=== PATIENT | male | born 1990 | race Caucasian/White ===

== ENCOUNTER 2016-06-03 20:03 | Emergency (ER) | payer MEDICAID ==
[2016-06-03 21:51] LABS: BASO % 0.4 % (0.0-1.0); EOS # 0.1 K/mm3 (0.0-0.50); EOS % 1.2 % (0.0-3.0); LARGE UNSTAINED CELL # 0.1 K/mm3 (0.0-0.4); LARGE UNSTAINED CELL % 1.6 % (0.0-4.0); LYMPH # 1.9 K/mm3 (1.5-6.5); MEAN CORPUSCULAR HEMOGLOBIN 30.5 pg (27.0-33.0); MEAN CORPUSCULAR HGB CONC 34.5 g/dl (32.0-36.5); MEAN CORPUSCULAR VOLUME 88.5 fl (80.0-96.0); MONO # 0.5 K/mm3 (0.0-0.8); MONO % 5.9 % (0.0-5.0); NEUTROPHILS # 5.7 K/mm3 (1.8-7.7); PLATELET COUNT, AUTOMATED 243 k/mm3 (150-450); RED CELL DISTRIBUTION WIDTH 12.1 % (11.5-14.5); WHITE BLOOD COUNT 8.4 K/mm3 (4.0-10.0)
[2016-06-03 21:57] LABS: INR 0.98
--- NOTE | 2016-06-03 22:00 | REPUSA ---
CLINICAL HISTORY:Headache TECHNIQUE: Head CT without contrast COMPARISON: No study for comparison is available at the time of interpretation. Brain: No intracranial hemorrhage, hydrocephalus, acute parenchymal edema or evident mass. Calvarium: Unremarkable. Sinuses (partially visualized): Clear. IMPRESSION: No acute intracranial findings.
[2016-06-03] MEDS ORDERED: ACETAMINOPHEN 325 MG TAB As Ordered ONE (22:11)
[2016-06-03 22:17] LABS: ANION GAP 8 MEQ/L (8-16); BLOOD UREA NITROGEN 18 MG/DL (7-18); CALCIUM LEVEL 8.4 MG/DL (8.5-10.1); CARBON DIOXIDE LEVEL 30 MEQ/L (21-32); CHLORIDE LEVEL 105 MEQ/L (98-107); CREATININE FOR GFR 0.79 MG/DL (0.70-1.30); GLOMERULAR FILTRATION RATE > 60.0 (>60); GLUCOSE, FASTING 87 MG/DL (70-105); SODIUM LEVEL 143 MEQ/L (136-145)
--- NOTE | 2016-06-03 23:11 | EDDOCDS ---
Nurse's Notes [facility] Name: John Sutton Age: 25 yrs Sex: Male : 1990 Arrival Date: 06/03/2016 Time: 20:03 Bed I2 / M2 Private MD: uAry Manning Diagnosis: Other chest pain;Headache Presentation: 06/03 20:16 Presenting complaint: Patient states: pt got "really shaky and really dizzy" while ttb moving furniture this afternoon around 3pm. Pains went through chest he states and he is "sore". Those symptoms resolved "after a while" but is now fatigued. Denies SOB, nausea, chest pain now. Aspirin was not taken prior to arrival. Adult Sepsis Screening: The patient does not have new or worsening altered mentation. Patient's respiratory rate is less than 22. Systolic blood pressure is greater than 100. Patient has a qSOFA score of 0- Negative Sepsis Screen. Suicide/Homicide risk assessment- the patient denies having any suicidal and/or homicidal ideations and does not present with any other emotional, behavioral or mental health complaints. Status: Patient is not a full service vending driver or dependent. Transition of care: patient was not received from another setting of care. 20:16 Acuity: MALIA Level 4 ttb 20:16 Method Of Arrival: Walkin/Carried/Asstd ttb Triage Assessment: 20:19 General: Appears in no apparent distress, well nourished, well groomed, Behavior is ttb appropriate for age, cooperative, flat, pleasant, quiet. Pain: Location: headache and muscle aches. HIV screening NA for this visit Offered previously. Neurological: Level of Consciousness is awake, alert, Reports headache generalized weakness . Cardiovascular: Chest pain is described as none now. Respiratory: No deficits noted. Airway is patent Respiratory effort is even, unlabored, Denies cough, shortness of breath. GI: Denies nausea, vomiting, pain. Derm: Skin is normal. Injury Description: No known injury. Historical: - Allergies: No known drug Allergies; - Home Meds: 1. none - PMHx: Hypertension; - PSHx: none; - Social history: Smoking status: Patient states was never smoker of tobacco. Patient/guardian denies using alcohol, street drugs, No barriers to communication noted, The patient speaks fluent Divehi, Speaks appropriately for age. - Family history: Not pertinent. - : The pt / caregiver states he / she is not on anticoagulants. Home medication list is obtained from the patient. - Exposure Risk Screening:: None identified. Screenin:49 Screening information is obtained from the patient. Fall risk: No risks identified. lf1 Assistance ADL's: requires no assistance with activities of daily living. Abuse/DV Screen: The patient / caregiver reports he/she is: not in a situation that causes fear, pain or injury. Nutritional screening: No deficits noted. Advance Directives: Currently, there is no health care proxy. home support is adequate. Assessment: 20:46 Adult Sepsis Screening: The patient does not have new or worsening altered mentation. lf1 Patient's respiratory rate is less than 22. Systolic blood pressure is greater than 100. Patient has a qSOFA score of 0- Negative Sepsis Screen. General: Appears in no apparent distress, comfortable, Behavior is cooperative. Pain: Denies pain. Neurological: Level of Consciousness is awake, alert, Oriented to person, place, time. EENT: No deficits noted. Cardiovascular: Chest pain Chest pain that began at 1500 and lasted for several hours - has since resolved. At worst pain was 9/10 and was mid sternal radiating into his back with shortness of breath, dizziness and blurred vision. . Respiratory: Respiratory effort is even, unlabored. GI: Denies nausea, vomiting. Derm: Skin is normal. 20:49 General: Pt reports history of hypertension but has been without his insurance for 1 about one year and as a result has not been taking his meds or seeing his PCP. 22:15 General: Appears in no apparent distress, comfortable, Behavior is appropriate for age, jo3 cooperative. Neurological: Level of Consciousness is awake, alert, Oriented to person, place, time. Cardiovascular: No deficits noted. Respiratory: Airway is patent Respiratory effort is even, unlabored. Derm: Skin is pink, warm & dry. Vital Signs: 20:04 BP 201 / 86; Pulse 98; Resp 20; Temp 98.4(O); Pulse Ox 98% on R/A; Weight 108.86 kg li (R); Height 5 ft. 10 in. (177.80 cm) (R); Pain 7/10; 20:49 BP 168 / 78 LA Sitting (man/lg); lf1 23:09 BP 139 / 74; Pulse 16; Resp 70; Pain 0/10; mf4 20:04 Body Mass Index 34.44 (108.86 kg, 177.80 cm) li Vitals: 20:04 Log In Time: June 03, 2016 at 20:04. li ED Course: 20:04 Patient visited by Qi Deluna PCA. li 20:04 Aury Manning is Private Physician. li 20:04 Patient moved to Waiting li 20:05 Patient moved to Pre RCE li 20:19 Triage Initiated ttb 20:22 Patient moved to PD2 / 27 ttb 20:30 EKG done. (by ED staff). Reviewed by Barron Lopez DO. ar3 20:31 Patient visited by Sandra Wall PCA. ar3 20:31 Patient moved to Pre RCE ar3 20:45 Patient moved to Triage 2 lf1 20:46 Patient visited by Ellen John,RN. lf1 20:54 Patient visited by Ellen John,MILANA. lf1 21:02 Otto Almonte RPA-C is PHCP. ck7 21:02 Barron Lopez DO is Attending Physician. ck7 21:18 Patient visited by Otto Almonte RPA-C. ck7 21:32 Patient moved to I2 / M2 ar3 21:43 D-Dimer Quant Sent. slm 21:44 Mary Mullins LPN is Primary Nurse. slm 21:44 Patient visited by Mary Mullins LPN. slm 21:44 Cardiac Marker Panel Sent. slm 21:44 Pt & Aptt Sent. slm 21:44 MED Profile Sent. slm 21:44 CBC with Diff Sent. slm 21:44 Inserted saline lock: 20 gauge in right antecubital area and blood collected. The [facility] patient tolerated the procedure well. 22:07 CT Head Without Contrast Returned. EDMS 22:15 The patient / caregiver is instructed regarding the plan of care and ED course. jo3 22:16 Patient visited by Yuliya Weber RN. rs3 22:16 Patient visited by Yaneli Rust RN. jo3 22:50 Patient visited by Otto Almonte RPA-C. ck7 23:02 Aury Manning is Referral Physician. ck7 23:09 Discontinued lock intact, bleeding controlled, pressure dressing applied, No slm redness/swelling at site. No procedures done that require assistance. Administered Medications: 22:14 Drug: NS 0.9% 1000 ml [sodium chloride 0.9 % intravenous solution] Route: IV; Rate: jo3 bolus; Site: right antecubital; 23:10 Follow up: IV Status: Completed infusion; IV Intake: 900ml slm 22:14 Drug: Acetaminophen 650 mg [acetaminophen 325 mg tablet (2 tabs)] Route: PO; jo3 Intake: 23:10 IV: 900.00ml; Total: 900.00ml. slm Order Results: Lab Order: CBC with Diff; SPEC'M 06/03/16 21:42 Test: WHITE BLOOD COUNT; Value: 8.4; Range: 4.0-10.0; Units: K/mm3; Status: F Test: RED BLOOD COUNT; Value: 4.64; Range: 4.30-6.10; Units: M/mm3; Status: F Test: HEMOGLOBIN; Value: 14.2; Range: 14.0-18.0; Units: g/dl; Status: F Test: HEMATOCRIT; Value: 41.1; Range: 42.0-52.0; Abnormal: Below low normal; Units: %; Status: F Test: MEAN CORPUSCULAR VOLUME; Value: 88.5; Range: 80.0-96.0; Units: fl; Status: F Test: MEAN CORPUSCULAR HEMOGLOBIN; Value: 30.5; Range: 27.0-33.0; Units: pg; Status: F Test: MEAN CORPUSCULAR HGB CONC; Value: 34.5; Range: 32.0-36.5; Units: g/dl; Status: F Test: RED CELL DISTRIBUTION WIDTH; Value: 12.1; Range: 11.5-14.5; Units: %; Status: F Test: PLATELET COUNT, AUTOMATED; Value: 243; Range: 150-450; Units: k/mm3; Status: F Test: NEUTROPHILS %; Value: 68.0; Range: 36.0-66.0; Abnormal: Above high normal; Units: %; Status: F Test: LYMPH %; Value: 23.0; Range: 24.0-44.0; Abnormal: Below low normal; Units: %; Status: F Test: MONO %; Value: 5.9; Range: 0.0-5.0; Abnormal: Above high normal; Units: %; Status: F Test: EOS %; Value: 1.2; Range: 0.0-3.0; Units: %; Status: F Test: BASO %; Value: 0.4; Range: 0.0-1.0; Units: %; Status: F Test: LARGE UNSTAINED CELL %; Value: 1.6; Range: 0.0-4.0; Units: %; Status: F Test: NEUTROPHILS #; Value: 5.7; Range: 1.8-7.7; Units: K/mm3; Status: F Test: LYMPH #; Value: 1.9; Range: 1.5-6.5; Units: K/mm3; Status: F Test: MONO #; Value: 0.5; Range: 0.0-0.8; Units: K/mm3; Status: F Test: EOS #; Value: 0.1; Range: 0.0-0.50; Units: K/mm3; Status: F Test: BASO #; Value: 0.0; Range: 0.0-0.2; Units: K/mm3; Status: F Test: LARGE UNSTAINED CELL #; Value: 0.1; Range: 0.0-0.4; Units: K/mm3; Status: F Lab Order: [facility]; [facility]' 06/03/16 21:42 Test: GLUCOSE, FASTING; Value: 87; Range: 70-105; Units: MG/DL; Status: F Test: BLOOD UREA NITROGEN; Value: 18; Range: 7-18; Units: MG/DL; Status: F Test: CREATININE FOR GFR; Value: 0.79; Range: 0.70-1.30; Units: MG/DL; Status: F Test: GLOMERULAR FILTRATION RATE; Value: > 60.0; Range: >60; Status: F Test: SODIUM LEVEL; Value: 143; Range: 136-145; Units: MEQ/L; Status: F Test: POTASSIUM SERUM; Value: 4.0; Range: 3.5-5.1; Units: MEQ/L; Status: F Test: CHLORIDE LEVEL; Value: 105; Range: 98-107; Units: MEQ/L; Status: F Test: CARBON DIOXIDE LEVEL; Value: 30; Range: 21-32; Units: MEQ/L; Status: F Test: ANION GAP; Value: 8; Range: 8-16; Units: MEQ/L; Status: F Test: CALCIUM LEVEL; Value: 8.4; Range: 8.5-10.1; Abnormal: Below low normal; Units: MG/DL; Status: F Test Note: ; Units are mL/min/1.73 m2 Chronic Kidney Disease Staging per NKF: Stage I & II GFR >=60 Normal to Mildly Decreased Stage III GFR 30-59 Moderately Decreased Stage IV GFR 15-29 Severely Decreased Stage V GFR <15 Very Little GFR Left ESRD GFR <15 on GUEST SERVICES COORDINATOR Lab Order: Pt & Aptt; SPEC'06/03/16 21:42 Test: PROTHROMBIN TIME; Value: 13.1; Range: 12.3-14.5; Units: SECONDS; Status: F Test: INR; Value: 0.98; Status: F Test: PARTIAL THROMBOPLASTIN TIME; Value: 32.9; Range: 26.6-37.1; Units: SECONDS; Status: F Test Note: ; THERAPUTIC HUMAN INR VALUES INDICATIONS NORMAL RANGES PROPHYLAXIS/TREATMENT OF: VENOUS THROMBOSIS 2.0-3.0 PULMONARY EMBOLISM 2.0-3.0 PREVENTION OF SYSTEMIC EMBOLISM FROM: TISSUE HEART VALVES 2.0-3.0 ACUTE MYOCARDIAL INFARCTION 2.0-3.0 VALVULAR HEART DISEASE 2.0-3.0 ATRIAL FIBRILLATION 2.0-3.0 MECHANICAL VALVES(HIGH RISK) 2.5-3.5 RECURRENT MYOCARDIAL INFARCTION 2.5-3.5 Lab Order: Cardiac Marker Panel; SPEC'06/03/16 21:42 Test: CPK CREATINE PHOSPHOKINASE; Value: 308; Range: 39-308; Units: U/L; Status: F Test: CK-MB VALUE MASS; Value: 1.7; Range: 0.0-3.6; Units: NG/ML; Status: F Test: MB/CK RELATIVE INDEX; Value: 0.55; Range: < OR =4; Status: F Test: TROPONIN I; Value: < 0.02; Range: < 0.10; Units: NG/ML; Status: F Test Note: ; DIAGNOSIS CRITERIA MMB ng/ml Relative Index (RI) NON-AMI < or = 5 N/A PRIETO ZONE > 5 < or = 4 AMI > 5 > 4 Lab Order: D-Dimer Quant; SPEC'M 06/03/16 21:42 Test: D-DIMER QUANT; Value: < 270.0; Range: <500; Units: ng/ml; Status: F Radiology Order: CT Head Without Contrast Test: CT Head Without Contrast REASON FOR EXAMINATION: HEADACHE, R/O BLEED; ; CLINICAL HISTORY:Headache; TECHNIQUE: Head CT without contrast; COMPARISON: No study for comparison is available at the time of interpretation.; ; Brain: No intracranial hemorrhage, hydrocephalus, acute parenchymal edema or evident mass.; Calvarium: Unremarkable.; Sinuses (partially visualized): Clear.; IMPRESSION: No acute intracranial findings.; ; Outcome: 23:02 Discharge ordered by Provider. ck7 23:10 Discharge Assessment: Patient awake, alert and oriented x 3. No cognitive and/or mf4 functional deficits noted. Patient verbalized understanding of disposition instructions. patient administered narcotics - no. The following High Risk Discharge criteria are identified: None. Discharged to home ambulatory, with significant other. Condition: good Condition: stable Condition: improved. No special radiology studies were completed. Property sent home with patient. 23:11 Patient left the ED. mf4 Signatures: Dispatcher [employer] EDMS Yaneli Rust RN RN jo3 Ford, LisaRN RN 1 Yuliya Weber RN RN rs3 Sandra Wall, SENIOR PRODUCT ANALYST SENIOR PRODUCT ANALYST ar3 Qi Deluna, SENIOR PRODUCT ANALYST SENIOR PRODUCT ANALYST li Alvarado Sweeney,ELECTRONICS PROCESSOR ELECTRONICS PROCESSOR mf4 Otto Almonte, LIV-C RPA-Cck7 Marry Courtney RN RN ttb McIntyre, Stephanie, LPN LPN [facility] MTDD
--- NOTE | 2016-06-03 23:11 | EDDOCDS ---
Physician Documentation [facility] Name: John Sutton Age: 25 yrs Sex: Male : 1990 Arrival Date: 06/03/2016 Time: 20:03 Bed I2 / M2 Private MD: Aury Manning Disposition: 06/03/16 23:02 Discharged to Home/Self Care. Impression: Other chest pain, Headache. - Condition is Stable. - Discharge Instructions: Nonspecific Chest Pain, General Headache Without Cause. - Medication Reconciliation, Local Pharmacy Hours form. - Follow up: Aury Manning; When: 2 - 3 days; Reason: Recheck today's complaints, Continuance of care. - Problem is new. - Symptoms have improved. - Notes: FOLLOW UP WITH YOUR DOCTOR WITHIN THE NEXT 2 DAYS, RETURN TO THE ER IF THE SYMPTOMS WORSEN OR BECOME CONCERNING Historical: - Allergies: No known drug Allergies; - Home Meds: 1. none - PMHx: Hypertension; - PSHx: none; - Social history: Smoking status: Patient states was never smoker of tobacco. Patient/guardian denies using alcohol, street drugs, No barriers to communication noted, The patient speaks fluent Bermudian, Speaks appropriately for age. - Family history: Not pertinent. - : The pt / caregiver states he / she is not on anticoagulants. Home medication list is obtained from the patient. - Exposure Risk Screening:: None identified. Vital Signs: 06/03 20:04 BP 201 / 86; Pulse 98; Resp 20; Temp 98.4(O); Pulse Ox 98% on R/A; Weight 108.86 kg / li 240 lbs (R); Height 5 ft. 10 in. (177.80 cm) (R); Pain 7/10; 20:49 BP 168 / 78 LA Sitting (man/lg); lf1 23:09 BP 139 / 74; Pulse 16; Resp 70; Pain 0/10; mf4 20:04 Body Mass Index 34.44 (108.86 kg, 177.80 cm) il MDM: 20:23 ECG WITH READING ER PHYS+CARDIAG ordered. EDMS 21:31 IV Saline Lock ordered. ck7 21:31 NS 0.9% 1000 ml IV at bolus once ordered. ck7 21:31 CBC with Diff Ordered. EDMS 21:31 MED Profile Ordered. EDMS 21:31 Pt & Aptt Ordered. EDMS 21:31 Cardiac Marker Panel Ordered. EDMS 21:31 D-Dimer Quant Ordered. EDMS 21:32 Chest, 2 View (pa\E\lat) Ordered. EDMS 21:32 CT Head Without Contrast Ordered. EDMS 22:02 CBC with Diff Reviewed. ck7 22:02 Pt & Aptt Reviewed. ck7 22:02 Acetaminophen Tablet 650 mg PO once ordered. ck7 22:40 MED Profile Reviewed. ck7 22:40 Pt & Aptt Reviewed. ck7 22:40 Cardiac Marker Panel Reviewed. ck7 22:40 D-Dimer Quant Reviewed. ck7 22:40 CT Head Without Contrast Reviewed. ck7 22:53 Financial registration complete. zo Administered Medications: 22:14 Drug: NS 0.9% 1000 ml [sodium chloride 0.9 % intravenous solution] Route: IV; Rate: jo3 bolus; Site: right antecubital; 23:10 Follow up: IV Status: Completed infusion; IV Intake: 900ml m 22:14 Drug: Acetaminophen 650 mg [acetaminophen 325 mg tablet (2 tabs)] Route: PO; jo3 Signatures: Dispatcher [employer] EDMS Yaneli uRst,RN RN jo3 Alice Ramirez Michele,JOSE PIG FARMER mf4 Otto Almonte RPA-C RPA-Cck7 Marry Courtney, RN RN ttb Mary Mullins LPN [facility] MTDD
--- NOTE | 2016-06-04 00:44 | REP ---
Clinical: Chest pain . Comparison: None . Technique: PA and lateral. Findings: The mediastinum and cardiac silhouette are normal. The lung dumont are clear and without acute consolidation, effusion, or pneumothorax. The skeletal structures are intact and normal. Impression: 1. No acute cardiopulmonary process. Signed by Neo Grossman MD 06/04/2016 12:34 A
--- NOTE | 2016-06-04 07:51 | ECGEPIP ---
Stationary ECG Study [facility] - ED Test Date: 2016-06-03 Pat Name: BENITA CHANG Department: Room: - Gender: M Refueler: farzaneh : 1990 Requested By: VASQUEZ BOWEN Order Number: [id number] Reading MD: Theresa Montesinos Measurements Intervals [place] Rate: 73 P: 43 KS: 137 QRS: 34 QRSD: 102 T: 25 QT: 353 QTc: 390 Interpretive Statements SINUS RHYTHM NO PRIOR FOR COMPARISON Electronically Signed On 06-04-2016 7:51:37 EST by Theresa Montesinos
--- NOTE | 2016-06-06 00:13 | EDDOCDS ---
Nurse's Notes [facility] Name: Benita Sutton Age: 25 yrs Sex: Male : 1990 Arrival Date: 06/03/2016 Time: 20:03 Bed I2 / M2 Private MD: Aury Manning Diagnosis: Other chest pain;Headache Presentation: 06/03 20:16 Presenting complaint: Patient states: pt got "really shaky and really dizzy" while ttb moving furniture this afternoon around 3pm. Pains went through chest he states and he is "sore". Those symptoms resolved "after a while" but is now fatigued. Denies SOB, nausea, chest pain now. Aspirin was not taken prior to arrival. Adult Sepsis Screening: The patient does not have new or worsening altered mentation. Patient's respiratory rate is less than 22. Systolic blood pressure is greater than 100. Patient has a qSOFA score of 0- Negative Sepsis Screen. Suicide/Homicide risk assessment- the patient denies having any suicidal and/or homicidal ideations and does not present with any other emotional, behavioral or mental health complaints. Status: Patient is not a driver service technician or dependent. Transition of care: patient was not received from another setting of care. 20:16 Acuity: MALIA Level 4 ttb 20:16 Method Of Arrival: Walkin/Carried/Asstd ttb Triage Assessment: 20:19 General: Appears in no apparent distress, well nourished, well groomed, Behavior is ttb appropriate for age, cooperative, flat, pleasant, quiet. Pain: Location: headache and muscle aches. HIV screening NA for this visit Offered previously. Neurological: Level of Consciousness is awake, alert, Reports headache generalized weakness . Cardiovascular: Chest pain is described as none now. Respiratory: No deficits noted. Airway is patent Respiratory effort is even, unlabored, Denies cough, shortness of breath. GI: Denies nausea, vomiting, pain. Derm: Skin is normal. Injury Description: No known injury. Historical: - Allergies: No known drug Allergies; - Home Meds: 1. none - PMHx: Hypertension; - PSHx: none; - Social history: Smoking status: Patient states was never smoker of tobacco. Patient/guardian denies using alcohol, street drugs, No barriers to communication noted, The patient speaks fluent Faroese, Speaks appropriately for age. - Family history: Not pertinent. - : The pt / caregiver states he / she is not on anticoagulants. Home medication list is obtained from the patient. - Exposure Risk Screening:: None identified. Screenin:49 Screening information is obtained from the patient. Fall risk: No risks identified. lf1 Assistance ADL's: requires no assistance with activities of daily living. Abuse/DV Screen: The patient / caregiver reports he/she is: not in a situation that causes fear, pain or injury. Nutritional screening: No deficits noted. Advance Directives: Currently, there is no health care proxy. home support is adequate. Assessment: 20:46 Adult Sepsis Screening: The patient does not have new or worsening altered mentation. lf1 Patient's respiratory rate is less than 22. Systolic blood pressure is greater than 100. Patient has a qSOFA score of 0- Negative Sepsis Screen. General: Appears in no apparent distress, comfortable, Behavior is cooperative. Pain: Denies pain. Neurological: Level of Consciousness is awake, alert, Oriented to person, place, time. EENT: No deficits noted. Cardiovascular: Chest pain Chest pain that began at 1500 and lasted for several hours - has since resolved. At worst pain was 9/10 and was mid sternal radiating into his back with shortness of breath, dizziness and blurred vision. . Respiratory: Respiratory effort is even, unlabored. GI: Denies nausea, vomiting. Derm: Skin is normal. 20:49 General: Pt reports history of hypertension but has been without his insurance for 1 about one year and as a result has not been taking his meds or seeing his PCP. 22:15 General: Appears in no apparent distress, comfortable, Behavior is appropriate for age, jo3 cooperative. Neurological: Level of Consciousness is awake, alert, Oriented to person, place, time. Cardiovascular: No deficits noted. Respiratory: Airway is patent Respiratory effort is even, unlabored. Derm: Skin is pink, warm & dry. Vital Signs: 20:04 BP 201 / 86; Pulse 98; Resp 20; Temp 98.4(O); Pulse Ox 98% on R/A; Weight 108.86 kg li (R); Height 5 ft. 10 in. (177.80 cm) (R); Pain 7/10; 20:49 BP 168 / 78 LA Sitting (man/lg); lf1 23:09 BP 139 / 74; Pulse 16; Resp 70; Pain 0/10; mf4 20:04 Body Mass Index 34.44 (108.86 kg, 177.80 cm) li Vitals: 20:04 Log In Time: June 03, 2016 at 20:04. li ED Course: 20:04 Patient visited by Qi Deluna PCA. li 20:04 Aury Manning is Private Physician. li 20:04 Patient moved to Waiting li 20:05 Patient moved to Pre RCE li 20:19 Triage Initiated ttb 20:22 Patient moved to PD2 / 27 ttb 20:30 EKG done. (by ED staff). Reviewed by Vasquez Bowen DO. ar3 20:31 Patient visited by Sandra Wall PCA. ar3 20:31 Patient moved to Pre RCE ar3 20:45 Patient moved to Triage 2 lf1 20:46 Patient visited by Ellen John,RN. lf1 20:54 Patient visited by Ellen John,MILANA. lf1 21:02 Otto Almonte RPA-C is PHCP. ck7 21:02 Vasquez Bowen DO is Attending Physician. ck7 21:18 Patient visited by Otto Almonte RPA-C. ck7 21:32 Patient moved to I2 / M2 ar3 21:43 D-Dimer Quant Sent. slm 21:44 Mary Mullins LPN is Primary Nurse. slm 21:44 Patient visited by Mary Mullins LPN. slm 21:44 Cardiac Marker Panel Sent. slm 21:44 Pt & Aptt Sent. slm 21:44 MED Profile Sent. slm 21:44 CBC with Diff Sent. slm 21:44 Inserted saline lock: 20 gauge in right antecubital area and blood collected. [facility] patient tolerated the procedure well. 22:07 CT Head Without Contrast Returned. EDMS 22:15 The patient / caregiver is instructed regarding the plan of care and ED course. jo3 22:16 Patient visited by Yuliya Weber RN. rs3 22:16 Patient visited by Yaneli Rust RN. jo3 22:50 Patient visited by Otto Almonte RPA-C. ck7 23:02 Aury Manning is Referral Physician. ck7 23:09 Discontinued lock intact, bleeding controlled, pressure dressing applied, No slm redness/swelling at site. No procedures done that require assistance. 23:39 [facility] Payment Agreement was scanned into [employer] and attached to record. zo 06/04 01:01 Chest, 2 View (pa\\E\\lat) Returned. EDMS 08:11 EKG-ADULT Returned. EDMS 10:09 T-Sheet-- Draft Copy was scanned into [employer] and attached to record. gb 15:21 ECG/EKG was scanned into [employer] and attached to record. gb Administered Medications: 06/03 22:14 Drug: NS 0.9% 1000 ml [sodium chloride 0.9 % intravenous solution] Route: IV; Rate: jo3 bolus; Site: right antecubital; 23:10 Follow up: IV Status: Completed infusion; IV Intake: 900ml slm 22:14 Drug: Acetaminophen 650 mg [acetaminophen 325 mg tablet (2 tabs)] Route: PO; jo3 Intake: 23:10 IV: 900.00ml; Total: 900.00ml. slm Order Results: Lab Order: CBC with Diff; SPEC'M 06/03/16 21:42 Test: WHITE BLOOD COUNT; Value: 8.4; Range: 4.0-10.0; Units: K/mm3; Status: F Test: RED BLOOD COUNT; Value: 4.64; Range: 4.30-6.10; Units: M/mm3; Status: F Test: HEMOGLOBIN; Value: 14.2; Range: 14.0-18.0; Units: g/dl; Status: F Test: HEMATOCRIT; Value: 41.1; Range: 42.0-52.0; Abnormal: Below low normal; Units: %; Status: F Test: MEAN CORPUSCULAR VOLUME; Value: 88.5; Range: 80.0-96.0; Units: fl; Status: F Test: MEAN CORPUSCULAR HEMOGLOBIN; Value: 30.5; Range: 27.0-33.0; Units: pg; Status: F Test: MEAN CORPUSCULAR HGB CONC; Value: 34.5; Range: 32.0-36.5; Units: g/dl; Status: F Test: RED CELL DISTRIBUTION WIDTH; Value: 12.1; Range: 11.5-14.5; Units: %; Status: F Test: PLATELET COUNT, AUTOMATED; Value: 243; Range: 150-450; Units: k/mm3; Status: F Test: NEUTROPHILS %; Value: 68.0; Range: 36.0-66.0; Abnormal: Above high normal; Units: %; Status: F Test: LYMPH %; Value: 23.0; Range: 24.0-44.0; Abnormal: Below low normal; Units: %; Status: F Test: MONO %; Value: 5.9; Range: 0.0-5.0; Abnormal: Above high normal; Units: %; Status: F Test: EOS %; Value: 1.2; Range: 0.0-3.0; Units: %; Status: F Test: BASO %; Value: 0.4; Range: 0.0-1.0; Units: %; Status: F Test: LARGE UNSTAINED CELL %; Value: 1.6; Range: 0.0-4.0; Units: %; Status: F Test: NEUTROPHILS #; Value: 5.7; Range: 1.8-7.7; Units: K/mm3; Status: F Test: LYMPH #; Value: 1.9; Range: 1.5-6.5; Units: K/mm3; Status: F Test: MONO #; Value: 0.5; Range: 0.0-0.8; Units: K/mm3; Status: F Test: EOS #; Value: 0.1; Range: 0.0-0.50; Units: K/mm3; Status: F Test: BASO #; Value: 0.0; Range: 0.0-0.2; Units: K/mm3; Status: F Test: LARGE UNSTAINED CELL #; Value: 0.1; Range: 0.0-0.4; Units: K/mm3; Status: F Lab Order: MED Profile; SPEC'M 06/03/16 21:42 Test: GLUCOSE, FASTING; Value: 87; Range: 70-105; Units: MG/DL; Status: F Test: BLOOD UREA NITROGEN; Value: 18; Range: 7-18; Units: MG/DL; Status: F Test: CREATININE FOR GFR; Value: 0.79; Range: 0.70-1.30; Units: MG/DL; Status: F Test: GLOMERULAR FILTRATION RATE; Value: > 60.0; Range: >60; Status: F Test: SODIUM LEVEL; Value: 143; Range: 136-145; Units: MEQ/L; Status: F Test: POTASSIUM SERUM; Value: 4.0; Range: 3.5-5.1; Units: MEQ/L; Status: F Test: CHLORIDE LEVEL; Value: 105; Range: 98-107; Units: MEQ/L; Status: F Test: CARBON DIOXIDE LEVEL; Value: 30; Range: 21-32; Units: MEQ/L; Status: F Test: ANION GAP; Value: 8; Range: 8-16; Units: MEQ/L; Status: F Test: CALCIUM LEVEL; Value: 8.4; Range: 8.5-10.1; Abnormal: Below low normal; Units: MG/DL; Status: F Test Note: ; Units are mL/min/1.73 m2 Chronic Kidney Disease Staging per NKF: Stage I & II GFR >=60 Normal to Mildly Decreased Stage III GFR 30-59 Moderately Decreased Stage IV GFR 15-29 Severely Decreased Stage V GFR <15 Very Little GFR Left ESRD GFR <15 on [employer] Lab Order: Pt & Aptt; SPEC'06/03/16 21:42 Test: PROTHROMBIN TIME; Value: 13.1; Range: 12.3-14.5; Units: SECONDS; Status: F Test: INR; Value: 0.98; Status: F Test: PARTIAL THROMBOPLASTIN TIME; Value: 32.9; Range: 26.6-37.1; Units: SECONDS; Status: F Test Note: ; THERAPUTIC HUMAN INR VALUES INDICATIONS NORMAL RANGES PROPHYLAXIS/TREATMENT OF: VENOUS THROMBOSIS 2.0-3.0 PULMONARY EMBOLISM 2.0-3.0 PREVENTION OF SYSTEMIC EMBOLISM FROM: TISSUE HEART VALVES 2.0-3.0 ACUTE MYOCARDIAL INFARCTION 2.0-3.0 VALVULAR HEART DISEASE 2.0-3.0 ATRIAL FIBRILLATION 2.0-3.0 MECHANICAL VALVES(HIGH RISK) 2.5-3.5 RECURRENT MYOCARDIAL INFARCTION 2.5-3.5 Lab Order: Cardiac Marker Panel; SPEC'06/03/16 21:42 Test: CPK CREATINE PHOSPHOKINASE; Value: 308; Range: 39-308; Units: U/L; Status: F Test: CK-MB VALUE MASS; Value: 1.7; Range: 0.0-3.6; Units: NG/ML; Status: F Test: MB/CK RELATIVE INDEX; Value: 0.55; Range: < OR =4; Status: F Test: TROPONIN I; Value: < 0.02; Range: < 0.10; Units: NG/ML; Status: F Test Note: ; DIAGNOSIS CRITERIA MMB ng/ml Relative Index (RI) NON-AMI < or = 5 N/A PRIETO ZONE > 5 < or = 4 AMI > 5 > 4 Lab Order: D-Dimer Quant; SPEC'M 06/03/16 21:42 Test: D-DIMER QUANT; Value: < 270.0; Range: <500; Units: ng/ml; Status: F Radiology Order: EKG-ADULT Test: EKG-ADULT REASON FOR EXAMINATION: weakness; Stationary ECG Study; [facility] - ED; ; Test Date: 2016-06-03; Pat Name: BENITA SUTTON Department:; Room: -; 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: 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: 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; : 1990 Requested By: VASQUEZ BOWEN; Order Number: [id number] Reading MD: Theresa Montesinos; Measurements; Intervals [place]; Rate: 73 P: 43; MO: 137 QRS: 34; QRSD: 102 T: 25; QT: 353; QTc: 390; Interpretive Statements; SINUS RHYTHM; NO PRIOR FOR COMPARISON; Electronically Signed On 06-04-2016 7:51:37 EST by Theresa Montesinos; Radiology Order: CT Head Without Contrast Test: CT Head Without Contrast REASON FOR EXAMINATION: HEADACHE, R/O BLEED; ; CLINICAL HISTORY:Headache; TECHNIQUE: Head CT without contrast; COMPARISON: No study for comparison is available at the time of interpretation.; ; Brain: No intracranial hemorrhage, hydrocephalus, acute parenchymal edema or evident mass.; Calvarium: Unremarkable.; Sinuses (partially visualized): Clear.; IMPRESSION: No acute intracranial findings.; ; Radiology Order: Chest, 2 View (pa\\E\\lat) Test: Chest, 2 View (pa\\E\\lat) REASON FOR EXAMINATION: Chest Pain; Clinical: Chest pain .; ; Comparison: None .; ; Technique: PA and lateral.; ; Findings:; The mediastinum and cardiac silhouette are normal. The lung dumont are clear and; without acute consolidation, effusion, or pneumothorax. The skeletal structures; are intact and normal.; ; Impression:; 1. No acute cardiopulmonary process.; ; ; Signed by; Neo Grossman MD 06/04/2016 12:34 A; Outcome: 23:02 Discharge ordered by Provider. ck7 23:10 Discharge Assessment: Patient awake, alert and oriented x 3. No cognitive and/or mf4 functional deficits noted. Patient verbalized understanding of disposition instructions. patient administered narcotics - no. The following High Risk Discharge criteria are identified: None. Discharged to home ambulatory, with significant other. Condition: good Condition: stable Condition: improved. No special radiology studies were completed. Property sent home with patient. 23:11 Patient left the ED. mf4 Signatures: Dispatcher [employer] EDMS Patricia Delgado, Reg Reg Yaneli Obregon,RN RN jo3 Alice Ramirez Lisa,RN RN lf1 Yuliya Weber,RN RN rs3 Sandra Wall, INTERACTIVE WEB DEVELOPER INTERACTIVE WEB DEVELOPER ar3 Qi Deluna, INTERACTIVE WEB DEVELOPER INTERACTIVE WEB DEVELOPER Alvarado Lan,DESIGN PAINTER DESIGN PAINTER mf4 Otto Almonte, RPA-C RPA-Cck7 Marry Courtney RN RN ttb McIntyre, Stephanie, LPN DESIGN PAINTER sl Chart Complete MTDD
--- NOTE | 2016-06-06 00:13 | EDDOCDS ---
Physician Documentation [facility] Name: John Sutton Age: 25 yrs Sex: Male : 1990 Arrival Date: 06/03/2016 Time: 20:03 Bed I2 / M2 Private MD: Aury Manning Disposition: 06/03/16 23:02 Discharged to Home/Self Care. Impression: Other chest pain, Headache. - Condition is Stable. - Discharge Instructions: Nonspecific Chest Pain, General Headache Without Cause. - Medication Reconciliation, Local Pharmacy Hours form. - Follow up: Aury Manning; When: 2 - 3 days; Reason: Recheck today's complaints, Continuance of care. - Problem is new. - Symptoms have improved. - Notes: FOLLOW UP WITH YOUR DOCTOR WITHIN THE NEXT 2 DAYS, RETURN TO THE ER IF THE SYMPTOMS WORSEN OR BECOME CONCERNING Historical: - Allergies: No known drug Allergies; - Home Meds: 1. none - PMHx: Hypertension; - PSHx: none; - Social history: Smoking status: Patient states was never smoker of tobacco. Patient/guardian denies using alcohol, street drugs, No barriers to communication noted, The patient speaks fluent Botswanan, Speaks appropriately for age. - Family history: Not pertinent. - : The pt / caregiver states he / she is not on anticoagulants. Home medication list is obtained from the patient. - Exposure Risk Screening:: None identified. Vital Signs: 06/03 20:04 BP 201 / 86; Pulse 98; Resp 20; Temp 98.4(O); Pulse Ox 98% on R/A; Weight 108.86 kg / li 240 lbs (R); Height 5 ft. 10 in. (177.80 cm) (R); Pain 7/10; 20:49 BP 168 / 78 LA Sitting (man/lg); lf1 23:09 BP 139 / 74; Pulse 16; Resp 70; Pain 0/10; mf4 20:04 Body Mass Index 34.44 (108.86 kg, 177.80 cm) li MDM: 20:23 ECG WITH READING ER PHYS+CARDIAG ordered. EDMS 21:31 IV Saline Lock ordered. ck7 21:31 NS 0.9% 1000 ml IV at bolus once ordered. ck7 21:31 CBC with Diff Ordered. EDMS 21:31 MED Profile Ordered. EDMS 21:31 Pt & Aptt Ordered. EDMS 21:31 Cardiac Marker Panel Ordered. EDMS 21:31 D-Dimer Quant Ordered. EDMS 21:32 Chest, 2 View (pa\E\lat) Ordered. EDMS 21:32 CT Head Without Contrast Ordered. EDMS 22:02 CBC with Diff Reviewed. ck7 22:02 Pt & Aptt Reviewed. ck7 22:02 Acetaminophen Tablet 650 mg PO once ordered. ck7 22:40 MED Profile Reviewed. ck7 22:40 Pt & Aptt Reviewed. ck7 22:40 Cardiac Marker Panel Reviewed. ck7 22:40 D-Dimer Quant Reviewed. ck7 22:40 CT Head Without Contrast Reviewed. ck7 22:53 Financial registration complete. zo 23:39 [facility] Payment Agreement was scanned into [employer] and attached to record. zo 06/04 10:09 T-Sheet-- Draft Copy was scanned into [employer] and attached to record. gb 15:21 ECG/EKG was scanned into [employer] and attached to record. gb Administered Medications: 06/03 22:14 Drug: NS 0.9% 1000 ml [sodium chloride 0.9 % intravenous solution] Route: IV; Rate: jo3 bolus; Site: right antecubital; 23:10 Follow up: IV Status: Completed infusion; IV Intake: 900ml [facility] 22:14 Drug: Acetaminophen 650 mg [acetaminophen 325 mg tablet (2 tabs)] Route: PO; jo3 Signatures: Dispatcher [employer] EDMS Patricia Delgado, Reg Reg Yaneli Obregon RN RN jo3 Alice Ramirez Michele, LPN LPN mf4 Otto Almonte, RPA-C RPA-Cck7 Marry Courtney RN RN ttb McIntyre, Stephanie LPN [facility] The chart was reviewed and I authenticate all verbal orders and agree with the evaluation and treatment provided.Attachments: 23:39 [facility] Payment Agreement zo 06/04 10:09 T-Sheet-- Draft Copy gb 15:21 ECG/EKG gb Chart Complete MTDD
--- NOTE | 2016-06-06 00:13 | EDDOCDS ---
Physician Documentation [facility] Name: John Sutton Age: 25 yrs Sex: Male : 1990 Arrival Date: 06/03/2016 Time: 20:03 Bed I2 / M2 Private MD: Aury Manning Disposition: 06/03/16 23:02 Discharged to Home/Self Care. Impression: Other chest pain, Headache. - Condition is Stable. - Discharge Instructions: Nonspecific Chest Pain, General Headache Without Cause. - Medication Reconciliation, Local Pharmacy Hours form. - Follow up: Aury Manning; When: 2 - 3 days; Reason: Recheck today's complaints, Continuance of care. - Problem is new. - Symptoms have improved. - Notes: FOLLOW UP WITH YOUR DOCTOR WITHIN THE NEXT 2 DAYS, RETURN TO THE ER IF THE SYMPTOMS WORSEN OR BECOME CONCERNING Historical: - Allergies: No known drug Allergies; - Home Meds: 1. none - PMHx: Hypertension; - PSHx: none; - Social history: Smoking status: Patient states was never smoker of tobacco. Patient/guardian denies using alcohol, street drugs, No barriers to communication noted, The patient speaks fluent Uruguayan, Speaks appropriately for age. - Family history: Not pertinent. - : The pt / caregiver states he / she is not on anticoagulants. Home medication list is obtained from the patient. - Exposure Risk Screening:: None identified. Vital Signs: 06/03 20:04 BP 201 / 86; Pulse 98; Resp 20; Temp 98.4(O); Pulse Ox 98% on R/A; Weight 108.86 kg / li 240 lbs (R); Height 5 ft. 10 in. (177.80 cm) (R); Pain 7/10; 20:49 BP 168 / 78 LA Sitting (man/lg); lf1 23:09 BP 139 / 74; Pulse 16; Resp 70; Pain 0/10; mf4 20:04 Body Mass Index 34.44 (108.86 kg, 177.80 cm) li MDM: 20:23 ECG WITH READING ER PHYS+CARDIAG ordered. EDMS 21:31 IV Saline Lock ordered. ck7 21:31 NS 0.9% 1000 ml IV at bolus once ordered. ck7 21:31 CBC with Diff Ordered. EDMS 21:31 MED Profile Ordered. EDMS 21:31 Pt & Aptt Ordered. EDMS 21:31 Cardiac Marker Panel Ordered. EDMS 21:31 D-Dimer Quant Ordered. EDMS 21:32 Chest, 2 View (pa\E\lat) Ordered. EDMS 21:32 CT Head Without Contrast Ordered. EDMS 22:02 CBC with Diff Reviewed. ck7 22:02 Pt & Aptt Reviewed. ck7 22:02 Acetaminophen Tablet 650 mg PO once ordered. ck7 22:40 MED Profile Reviewed. ck7 22:40 Pt & Aptt Reviewed. ck7 22:40 Cardiac Marker Panel Reviewed. ck7 22:40 D-Dimer Quant Reviewed. ck7 22:40 CT Head Without Contrast Reviewed. ck7 22:53 Financial registration complete. zo 23:39 [facility] Payment Agreement was scanned into [employer] and attached to record. zo 06/04 10:09 T-Sheet-- Draft Copy was scanned into [employer] and attached to record. gb 15:21 ECG/EKG was scanned into [employer] and attached to record. gb Administered Medications: 06/03 22:14 Drug: NS 0.9% 1000 ml [sodium chloride 0.9 % intravenous solution] Route: IV; Rate: jo3 bolus; Site: right antecubital; 23:10 Follow up: IV Status: Completed infusion; IV Intake: 900ml [facility] 22:14 Drug: Acetaminophen 650 mg [acetaminophen 325 mg tablet (2 tabs)] Route: PO; jo3 Signatures: Dispatcher [employer] EDMS Patricia Delgado, Reg Reg Yaneli Obregon RN RN jo3 Alice Ramirez Michele, LPN LPN mf4 Otto Almonte, RPA-C RPA-Cck7 Marry Courtney RN RN ttb McIntyre, Stephanie LPN [facility] The chart was reviewed and I authenticate all verbal orders and agree with the evaluation and treatment provided.Attachments: 23:39 [facility] Payment Agreement zo 06/04 10:09 T-Sheet-- Draft Copy gb 15:21 ECG/EKG gb Chart Complete MTDD
== END 2016-06-03 23:11 | disposition home or self-care (01) ==
LOC: M ED 20:03
DX: R07.9 Chest pain, unspecified (principal); R51 Headache; I10 Essential (primary) hypertension

== ENCOUNTER → 2016-06-07 | Outpatient (REF) | payer OTHER ==
[2016-06-07 14:09] LABS: SPERM ABNORMAL FORMS WBC'S NOTED
[2016-06-07 14:10] LABS: #MOTILE SPERM COUNTED 1.5
[2016-06-07 14:11] LABS: #IMMOTILE SPERM COUNTED 2; % MOTILITY 42 (> 25%); TOTAL # SPERM COUNTED 3.5 M/ml
== END ==
LOC: M LAB REF 13:06
PROVIDERS: ATTEND Obstetrics & Gynecology
DX: Z30.2 Encounter for sterilization (principal)

== ENCOUNTER → 2016-07-02 | Outpatient (CLI) | payer OTHER ==
--- NOTE | 2016-07-02 15:00 | REP ---
SINUSES, FOUR VIEWS: HISTORY: Acute sinusitis. The sinuses are clear. There is no fracture or bone lesion. IMPRESSION: Normal study. Signed by Chucky Hernandez MD 07/02/2016 03:02 P
== END ==
LOC: M RAD 14:23
PROVIDERS: ATTEND Nurse Practitioner Adult Health
DX: J01.90 Acute sinusitis, unspecified (principal)

== ENCOUNTER → 2016-12-04 | Outpatient (CLI) | payer OTHER ==
[2016-12-04 13:33] LABS: MEAN CORPUSCULAR HEMOGLOBIN 30.9 pg (27.0-33.0); MEAN CORPUSCULAR HGB CONC 34.5 g/dl (32.0-36.5); MEAN CORPUSCULAR VOLUME 89.5 fl (80.0-96.0); RED CELL DISTRIBUTION WIDTH 12.3 % (11.5-14.5); WHITE BLOOD COUNT 4.3 K/mm3 (4.0-10.0)
[2016-12-04 14:10] LABS: FOLLICLE STIMULATING HORMONE 6.9 mIU/mL (1.4-18.1); LUTEINIZING HORMONE 6.4 mIU/mL (1.5-9.3); PROLACTIN 10.8 NG/ML (2.1-17.7)
[2016-12-04 14:15] LABS: ALBUMIN 3.8 GM/DL (3.2-5.2); ALBUMIN/GLOBULIN RATIO 0.97 (1.00-1.93); ALKALINE PHOSPHATASE 87 U/L (45-117); ALT/SGPT 55 U/L (12-78); ANION GAP 5 MEQ/L (8-16); AST/SGOT 21 U/L (15-37); BLOOD UREA NITROGEN 14 MG/DL (7-18); CARBON DIOXIDE LEVEL 30 MEQ/L (21-32); CHLORIDE LEVEL 105 MEQ/L (98-107); CREATININE FOR GFR 0.86 MG/DL (0.70-1.30); GLOMERULAR FILTRATION RATE > 60.0 (>60); GLUCOSE, FASTING 90 MG/DL (70-105); POTASSIUM SERUM 4.5 MEQ/L (3.5-5.1); SODIUM LEVEL 140 MEQ/L (136-145); TOTAL PROTEIN 7.7 GM/DL (6.4-8.2)
[2016-12-17 11:16] LABS: CHROMKB1 SEE SEPARATE REPORT
== END ==
LOC: M LAB 12:21
PROVIDERS: ATTEND Obstetrics & Gynecology Reproductive Endocrinology
DX: N46.9 Male infertility, unspecified (principal)

== ENCOUNTER 2017-04-20 01:18 | Emergency (ER) | payer OTHER, SELFPAY | END 2017-04-20 05:36 | disposition home or self-care (01) | LOC: M ED 01:18 | DX: J20.9 Acute bronchitis, unspecified (principal) | CPT/HCPCS: 71046 ==

== ENCOUNTER → 2017-05-27 | Outpatient (CLI) | payer OTHER ==
[2017-05-27 13:56] LABS: ESTIMATED AVERAGE GLUCOSE 85 MG/DL (60-110); HEMOGLOBIN A1c 4.6 %
[2017-05-27 14:16] LABS: ALBUMIN/GLOBULIN RATIO 1.11 (1.00-1.93); ALKALINE PHOSPHATASE 74 U/L (45-117); ALT/SGPT 33 U/L (12-78); ANION GAP 6 MEQ/L (8-16); AST/SGOT 20 U/L (7-37); BLOOD UREA NITROGEN 12 MG/DL (7-18); CARBON DIOXIDE LEVEL 31 MEQ/L (21-32); CHLORIDE LEVEL 103 MEQ/L (98-107); CHOLESTEROL LEVEL 210 MG/DL (<200); CHOLESTEROL RISK RATIO 3.134 (<5); CREATININE FOR GFR 0.81 MG/DL (0.70-1.30); FREE T4 0.91 NG/DL (0.76-1.46); GLOMERULAR FILTRATION RATE > 60.0 (>60); GLUCOSE, FASTING 79 MG/DL (70-100); HDL CHOLESTEROL 67 MG/DL (>40); NON-HDL-C 143 MG/DL; POTASSIUM SERUM 4.8 MEQ/L (3.5-5.1); SODIUM LEVEL 140 MEQ/L (136-145); TOTAL PROTEIN 7.6 GM/DL (6.4-8.2); TRIGLYCERIDES LEVEL 60 MG/DL (<150)
[2017-05-27 14:24] LABS: APPEARANCE, URINE HAZY (CLEAR); BACTERIA, URINE AUTO 1+ (NEGATIVE); BILIRUBIN, URINE AUTO NEGATIVE (NEGATIVE); BLOOD, URINE BLOOD NEGATIVE (NEGATIVE); COLOR, URINE YELLOW (YELLOW); GLUCOSE, URINE (UA) AUTO NEGATIVE (NEGATIVE); KETONE, URINE AUTO 1+ mg/dL (NEGATIVE); LEUKOCYTE ESTERASE, URINE AUTO TRACE (NEGATIVE); MUCUS, URINE SMALL (NEGATIVE); NITRITE, URINE AUTO NEGATIVE (NEGATIVE); PROTEIN, URINE AUTO NEGATIVE (NEGATIVE); RBC, URINE AUTO 2 /HPF (0-3); SPECIFIC GRAVITY URINE AUTO 1.023 (1.002-1.035); SQUAMOUS EPITHELIAL CELL UR AU 1 /HPF (0-6); UROBILINOGEN, URINE AUTO 0.2 mg/dL (0.0-2.0); WBC, URINE AUTO 4 /HPF (0-3)
[2017-05-27 14:26] LABS: BASO % 0.4 % (0.0-1.0); EOS % 0.2 % (0.0-3.0); HEMATOCRIT 43.8 % (42.0-52.0); HEMOGLOBIN 15.1 g/dl (14.0-18.0); IMMATURE GRANULOCYTE % 0.2 % (0-3.0); LYMPH # 1.6 10^3/uL (1.5-6.5); LYMPH % 35.5 % (24.0-44.0); MEAN CORPUSCULAR HEMOGLOBIN 30.1 pg (27.0-33.0); MEAN CORPUSCULAR HGB CONC 34.5 g/dl (32.0-36.5); MEAN CORPUSCULAR VOLUME 87.3 fl (80.0-96.0); MONO # 0.4 10^3/uL (0.0-0.8); MONO % 8.1 % (0.0-5.0); NEUTROPHILS # 2.6 10^3/uL (1.8-7.7); NEUTROPHILS % 55.6 % (36.0-66.0); PLATELET COUNT, AUTOMATED 283 10^3/uL (150-450); RED BLOOD COUNT 5.02 10^6/uL (4.30-6.10); RED CELL DISTRIBUTION WIDTH 12.3 % (11.5-14.5); WHITE BLOOD COUNT 4.6 10^3/uL (4.0-10.0)
== END ==
LOC: M LAB 12:41
DX: R86 Abnormal findings in specimens from male genital organs (principal)
CPT/HCPCS: 84443

== ENCOUNTER → 2017-08-13 | Outpatient (REF) | payer OTHER ==
[2017-08-13 12:50] LABS: SEMEN APPEARANCE OPAQUE (OPAQUE); SEMEN VISCOSITY LIQUID (LIQUID); SEMEN VOLUME 6.4 ML (4.0-5.0)
[2017-08-13 12:51] LABS: #IMMOTILE SPERM COUNTED 8; #MOTILE SPERM COUNTED 6; % MOTILITY 43 (> 40%); SEMEN WBC <=1 M/ml (<=1 M/ml); SPERM ABNORMAL FORMS WBC'S NOTED; SPERM CONCENTRATION 7 M/ml (> 15 M/ml); TOTAL # SPERM COUNTED 14 M/ml
== END ==
LOC: M LAB REF 12:29
DX: Z31.41 Encounter for fertility testing (principal)
CPT/HCPCS: 89321

== ENCOUNTER 2017-09-10 07:41 | Outpatient (RCR) | payer OTHER | END 2017-10-05 | LOC: M PT 07:41 | DX: Z51.89 Encounter for other specified aftercare (principal); M54.5 Low back pain | CPT/HCPCS: 97010 ==